=== PATIENT | female | born 1960 | race Caucasian/White ===

== ENCOUNTER → 2020-12-07 | Outpatient (CLI) | payer OTHER, SELFPAY ==
--- NOTE | 2020-12-08 | EMB_PTH ---
PATIENT: [facility] LA ROSA [id number] AGE/SX: 60/F ROOM: RE12/07/[address]: Dr. Jose Alejandro Craven MD : 1960 BED: DIS: 12/07/2020 SPEC #: [id number] RECD: 12/08/20 11:41 STATUS: PRIYANKA STORM #: [id number] HORACIO: 12/08/20 00:[address]: Jose Alejandro Craven DEPT: SURGICAL PATHOLOGY RECD BY: Larry Rader Tissues: A - Endometrium, NOS B - Endocervical Procedures: Surgery Specimen Level IV HEADER OPERATION: Endometrial biopsy, endocervical polypectomy PRE-OP DIAGNOSIS: PMB TISSUE SUBMITTED: A ? Endometrial biopsy, B ? Endocervical polyp MICROSCOPIC DIAGNOSIS A. Endometrium, biopsy: Scant strips of benign superficial glandular mucosa with focal acute inflammation. B. Endocervical polyp, biopsy: Fragments of endometrial polyp with simple hyperplasia without atypia. AM:pantera 12/09/2020 COMMENT Case has been reviewed in consultation with Dr. Jhaveri who concurs with the above diagnosis. IDC:[email or web address] MICROSCOPIC DESCRIPTION Slides are reviewed. GROSS DESCRIPTION A - Received in fixative is one container labeled with the patient's name and designated EM biopsy. The specimen consists of multiple fragments of hemorrhagic soft tissue mixed with mucoid tissue that in aggregate measure 3 x 2.5 x 0.3 cm. The specimen is totally submitted in one cassette. B - Received in fixative is one container labeled with the patient's name and designated cervical polyp. The specimen consists of a cook-pink polyp measuring 3 x 1 x 0.5 cm. Also present in the container are multiple fragments of cook, mucoid to hemorrhagic soft tissue measuring in aggregate 2.5 x 0.3 x 0.1 cm. The polyp is bisected. The entire specimen is submitted in one cassette. / SHEELA:pantera 12/08/20 TC:1 CPT: 09510 x2
[2020-12-11 19:52] LABS: HPV Reflexed? NOT INDICATED
== END | disposition home or self-care (01) ==
LOC: LABSPEC 12-08 09:31
PROVIDERS: Visit Provider Obstetrics & Gynecology
DX: Z12.4 Encounter for screening for malignant neoplasm of cervix (principal); N85.01 Benign endometrial hyperplasia; N95.0 Postmenopausal bleeding
CPT/HCPCS: 88175; 88305; G0145

== ENCOUNTER 2021-02-08 10:01 | Outpatient (CLI) | payer BC, SELFPAY | END 2021-02-08 23:59 | disposition short-term general hospital (02) | LOC: LABSPEC 10:02 | PROVIDERS: Visit Provider Obstetrics & Gynecology | DX: Z20.822 Contact with and (suspected) exposure to COVID-19 (principal) | CPT/HCPCS: 87635; U0003; U0005 ==

== ENCOUNTER 2021-02-10 06:58 | Day surgery (SDC) | payer BC, SELFPAY ==
[2021-02-10] VITALS (7 sets, daily range): BP systolic 113–143; BP diastolic 68–91; PULSE 60–89; RESP 16–18; TEMP 35.8–36.4; O2SAT 97–99; BMI 30.9
[2021-02-10 07:35] LABS: Hematocrit 43.8 % (37-47); Hemoglobin 14.9 g/dL (12.0-15.0); Mean Corpuscular Volume 91.1 fL (81-99); Mean Platelet Vol. 11.6 fl (6.2-12.0); Platelet Count 198 K/mm3 (150-450); RBC Distribution Width CV 12.1 % (11.6-14.6); RBC Distribution Width SD 40.4 fl (35.1-43.9); Red Blood Count 4.81 M/mm3 (4.2-5.4); White Blood Count 5.9 K/mm3 (4.4-11.0)
[2021-02-10] MEDS: Lactated Ringers 1,000 ML 15 ML IV (07:36)
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
--- NOTE | 2021-02-10 08:40 | EMB_PTH ---
PATIENT: RICHARD DE LA ROSA LOC: [facility] [place] U#:[id number] AGE/SX: 60/F ROOM: RE02/10/[address]: Dr. Bill Thibodeaux MD : 1960 BED: DIS: 02/10/2021 SPEC #: [id number] RECD: 02/10/21 10:08 STATUS: PRIYANKA STORM #: [id number] HORACIO: 02/10/21 08:[address]: Bill Thibodeaux DEPT: SURGICAL PATHOLOGY RECD BY: Christen Gooden ENTERED: 02/10/21 13:32 SP TYPE: ENDOM BX/C EDER DR: Dr. Fabián Parra MD Tissues: Endometrium, NOS Procedures: Surgery Specimen Level IV HEADER OPERATION: Hysteroscopy, D & C Symphion, polypectomy PRE-OP DIAGNOSIS: Postmenopausal bleeding TISSUE SUBMITTED: Endometrial curettings and polyp MICROSCOPIC DIAGNOSIS Endometrial curettings and polyp: Polypoid fragments of simple and focal complex hyperplasia without atypia. AM:pantera 02/11/2021 MICROSCOPIC DESCRIPTION Slides are reviewed. GROSS DESCRIPTION Received in fixative is one container labeled with the patient's name and designated endometrial curettings and polyp. The specimen consists of multiple irregular fragments of pink-cook soft tissue that in aggregate measure 8 x 3 x 0.7 cm. The specimen is totally submitted in seven cassettes. / AM:pantera 02/10/21 TC:? CPT: 85894
--- NOTE | 2021-02-10 09:19 | OP.PCM_ITS ---
Report of Operation Date of Procedure: 02/10/21 Pre-Operative Diagnosis: Postmenopausal bleeding Post-Operative Diagnosis: Postmenopausal bleeding, uterine polyp Surgery/Procedure Performed:: Hysteroscopy, dilation and curettage, uterine polypectomy via symphion Description of Surgical Findings:: Surgeon: Bill Thibodeaux MD Anesthesia: MAC EBL: 5 cc Urine output: 30 cc IV fluids: 900 cc Fluid deficit: 650 cc specimen: Polyp and endometrial curettings Findings: Hysteroscope revealed fundal polyp 2 to 3 cm in size. Otherwise no pathology noted. Consent: Patient with postmenopausal bleeding elects for hysteroscopy, dilation curettag e, possible polypectomy. Patient understands the risk of the procedure include but are not limited to visceral or vascular injury, prolonged hospitalization, blood loss and need for transfusion, reoperation. Patient state understanding and wished to proceed. All questions were answered and consent was signed. Procedure: Patient was brought back to the OR where MAC anesthesia was found to be ad equate. Patient was prepared and draped in a dorsolithotomy position with yellowfin stirrups. A weighted speculum is placed in the posterior aspect of the vagina and cervical dilators were used to dilate the cervix. Hysteroscope was inserted and above findings were noted. Symphion was inserted under direct visualization, uterine polypectomy was performed with symphion device. Sharp curettage was performed in all uterine quadrants. Good hemostasis was noted. All counts were correct x2. Patient tolerated procedure well and was brought to recovery in stable condition.
--- NOTE | 2021-02-10 09:19 | PCM.DC ---
Discharge Instructions Diet Discharge Diet: No restrictions Activity Discharge Activity: Return to Normal Activity, May Drive and May Shower May resume sexual activity in: 4-6 weeks Weight Bearing Status: Weight bearing as tolerated Dressing / Incision Call your doctor if your incision/area has: Continuous Slow Oozing and Foul Smelling Discharge Call your doctor if you observe: Fever of 101 or Higher, Shortness of breath and Chest pain Follow Up Care Please Follow Up With: Bill Thibodeaux MD When: 2 weeks postoperatively Test Results: Test results from this visit will be discussed in further detail at your follow-up appointment, if applicable. Discharge Plan Admission Attending Provider: Bill Thibodeaux Primary Care Provider: Fabián Parra Discharge Orders/Prescriptions Prescriptions: No Action multivitamin Tablet 1 tab PO DAILY RF: 0 Other Ambulatory Orders: COVID 19 AG RAPID (RN COLLECT) (Routine) Timeframe: [id number] Facility: [facility] - Location: Laboratory Ordered By: Dr. Reji Saunders Disposition Discharge Orders: Discharge Patient (Routine); Ordered 02/10/21 Ordered By: Dr. Bill Thibodeaux
== END 2021-02-10 23:59 | disposition home or self-care (01) ==
LOC: SDC 07:01 → AC 07:03
PROVIDERS: PCP Family Medicine; Referring Provider Obstetrics & Gynecology; Visit Provider Obstetrics & Gynecology
PROC: 0UB98ZZ Excision of Uterus, Via Natural or Artificial Opening Endoscopic (ICD-10-PCS; CPT 58558; principal; 2021-02-10 08:25)
DX: N95.0 Postmenopausal bleeding (principal); N85.01 Benign endometrial hyperplasia
CPT/HCPCS: 58558; 00952; 85027; 86850; 86900; 86901; 88305; J7120; J2405